=== PATIENT | male | born 1940 | race American Indian/Alaskan Native ===

== ENCOUNTER 2017-07-26 06:17 | Observation (INO) | payer MEDICARE, BC ==
[2017-07-21 13:02] VITALS: BMI 29.9
[2017-07-26] MEDS ORDERED: Lactated Ringer's 1,000 ML IV ONE ×4 (09:29→16:00)
[2017-07-26] MEDS ORDERED: Bupivacaine HCl 0.25% PF (10 ml) Inj ONE (09:56)
[2017-07-26] MEDS ORDERED: ceFAZolin IV 2 gm in Dextrose 2 GM/50 ML BAG IVPB ONE (09:56)
[2017-07-26] MEDS ORDERED: Lidocaine 1%/Epinephrine 1:100000 30 ml vial IJ ONE (10:00)
[2017-07-26] MEDS ORDERED: Propofol 10 mg/ml Inj (20 ML) ONE ×2 (10:49→12:49)
--- NOTE | 2017-07-26 11:28 | NM ---
HISTORY: [age] Year old male with right breast cancer. TECHNIQUE: For separate injections -totaling - 1.0 mCi of 99m Tc filtered sulfur colloid (total volume of 10 ml) were administered into the right periareolar subdermal locations 12, 3, 6 and 9 o'clock positions. Anterior/anterior-oblique and right lateral projection images of the chest/ axilla were subsequently obtained. FINDINGS: Confirmation of the 4 sites of injection. Right axillary lymph node identification. Multiple right axillary lymph nodes identified. Right supraclavicular lymph node also suggested IMPRESSION: Successful sentinel node procedure with confirmation of right axillary lymph nodes accumulating radionuclide Right supraclavicular lymph node also suggested
[2017-07-26] MEDS ORDERED: Bupivacaine HCl 0.5% PF (10 ml) Inj ONE ×2 (12:24→13:01)
[2017-07-26] MEDS ORDERED: Neostigmine Methylsulfate 3mg/3ml Syringe IV ONE (12:58)
--- NOTE | 2017-07-26 13:29 | PCM.SURG1 ---
Surgeon's Initial Post Op Note - Surgeon's Notes Surgeon: Shimon Card Folder: PGY4 Type of Anesthesia: General Endo, Local, Other (On Q) Pre-Operative Diagnosis: R breast cancer Operative Findings: see op note Post-Operative Diagnosis: R breast cancer Operation Performed: R breast mastectomy. Axillary node dissection. R breast sentinel lymph node biopsy Specimen/Specimens Removed: 1. R axillary lymph nodes for frozen section. 2. Redundant skin of R breast. 2. R breast Estimated Blood Loss: EBL {In ML}: 30 Blood Products Given: N/A Drains Used: Charlie Post-Op Condition: Good Date of Surgery/Procedure: 07/26/17 Time of Surgery/Procedure: 10:45
[2017-07-26] MEDS ORDERED: Oxycodone/Acetaminophen 5/325 mg Tab PO PRN (13:34)
[2017-07-26] MEDS ORDERED: BUPIVACAINE 0.125%/0.9% NACL 600 ML IJ ONE (14:00)
[2017-07-26] MEDS: Levothyroxine 100 MCG TAB PO SCH (18:00)
[2017-07-26] MEDS ORDERED: PrednisoLONE 1% Opht Susp(5 ml) OD SCH (18:00)
[2017-07-26] MEDS: ceFAZolin IV 1 gm in Dextrose 1 GM/50 ML BAG IVPB SCH (19:00)
[2017-07-26 20:18] VITALS: RESP 20
--- NOTE | 2017-07-27 01:29 | OP ---
PROCEDURE DATE: 07/26/2017 PREOPERATIVE DIAGNOSIS: Right breast cancer. POSTOPERATIVE DIAGNOSIS: Right breast cancer. PROCEDURES DONE: 1. Right mastectomy. 2. [place] lymph node dissection. 3. On-Q pain catheter pump placement. 4. Excision of the redundant skin flap. SURGEON: Ajay Robins MD PARTNERSHIP MARKETING MANAGER: Brandon Jin, PGY-2 resident. TYPE OF ANESTHESIA: General endotracheal tube anesthesia. ESTIMATED BLOOD LOSS: Around 30 mL. DRAINS: 15-Dutch Charlie drain was placed. COMPLICATIONS: None. INTRAOPERATIVE FINDINGS: Patient had five enlarged lymph nodes, and all the lymph nodes were negative for malignancy in frozen section, and patient had a right breast mass. DESCRIPTION OF PROCEDURE: On intraoperative steps, this is a 77-year-old male who was diagnosed with right breast cancer, and patient was consented for right mastectomy with sentinel lymph node dissection. The patient was brought to the OR, placed supine on the operating table. After induction of the anesthesia, both breasts and lower chest as well as the neck and axilla were prepped and draped in usual sterile fashion. After that, an axillary incision was made and incised the skin and subcutaneous tissue. The clavipectoral fascia was identified, and it was excised, and the five lymph nodes that were identified with gamma probe they were positive for signal, and all five lymph nodes were sent for intraoperative frozen section, and intraoperative frozen section was suggestive of negative for malignancy. Now an elliptical incision was made surrounding the right breast, and upper and lower flaps were created. The dissection was carried down superiorly up to the infraclavicular area, inferiorly up to the costal margin, medially up to the sternum, and laterally to the latissimus dorsi, and the right breast was completely excised from underlying pectoral muscle, and it was sent off the table for pathology. There was proper hemostasis in each and every part of the procedure. The wound was irrigated, and hemostasis was achieved. The 15-Dutch Charlie drain was placed and also the On-Q pain catheter pump was placed for postoperative analgesia. The third part of the procedure is On-Q pain catheter pump placement. After that the axillary wound was closed in multiple layers, the subcutaneous with a 2-0 Vicryl, skin with 4-0 Monocryl, and the extra redundant skin of the skin flap on the right side was also excised. Excision of the redundant skin flap was done approx 10x4 cm. After proper hemostasis, the wound was closed in two layers. The subcutaneous with multiple 2-0 Vicryl, skin with 4-0 Monocryl and dry sterile dressing was applied. Patient tolerated the procedure well. Count of instrument and gauze was correct. There was no apparent complication. Patient was extubated in OR, sent to the Postanesthesia Care Unit in stable condition. Ajay Robins MD [facility]ARA
[2017-07-27] MEDS: ceFAZolin IV 1 gm in Dextrose 1 GM/50 ML BAG IVPB SCH (03:13)
[2017-07-27] MEDS: Levothyroxine 100 MCG TAB PO SCH (05:54)
[2017-07-27 06:29] LABS: BASO # 0.1 K/uL (0.0-0.2); BASO % 0.5 % (0.0-2.0); EOS # 0.1 K/uL (0.0-0.7); EOS % 0.6 % (0.0-4.0); HEMOGLOBIN 10.7 g/dL (12.0-18.0); LYMPH % 8.6 % (20.0-40.0); MEAN CELL VOLUME 102.3 fL (80.0-94.0); MEAN CORPUSCULAR HEMOGLOBIN 34.6 pg (27.0-31.0); MEAN CORPUSCULAR HGB CONC 33.8 g/dL (33.0-37.0); MEAN PLATELET VOLUME 8.9 fL (7.2-11.7); MONO # 0.8 K/uL (0.0-0.8); MONO % 7.1 % (0.0-10.0); NEUT # 9.3 K/uL (1.8-7.0); NEUT % 83.2 % (50.0-75.0); PLATELET COUNT 208 K/uL (130-400); RBC 3.11 Mil/uL (4.40-5.90); RED CELL DISTRIBUTION WIDTH 12.9 % (11.5-14.5); WHITE BLOOD COUNT 11.2 K/uL (4.8-10.8)
[2017-07-27 06:45] LABS: BLOOD UREA NITROGEN 12 mg/dL (9-20); CALCIUM 8.7 mg/dl (8.6-10.4); GFR AFRICAN-AMERICAN > 60; GFR NON-AFRICAN AMERICAN > 60
[2017-07-27] MEDS ORDERED: ARMODAFINIL 250 MG PO SCH (10:00)
[2017-07-27] MEDS ORDERED: Home Med 1 UNIT (Mirabegron [Myrbetriq] 50 MG) PO SCH (10:00)
[2017-07-27 10:10] LABS: BANDS 1 % (0-2); LYMPHOCYTE 8 % (20-40); MONOCYTE 8 % (0-10); NEUTROPHIL 83 % (50-75); TOTAL CELLS COUNTED 100
[2017-07-27 10:11] LABS: ANISOCYTOSIS SLIGHT; HYPOCHROMIC SLIGHT; LARGE PLATELETS PRESENT; PLATELET CLUMPS PRESENT; PLATELET ESTIMATE NORMAL (NORMAL); POLYCHROMIC SLIGHT
[2017-07-27 10:12] LABS: TOXIC GRANULATION PRESENT
[2017-07-27] MEDS: Metoprolol Succinate 100 mg XL Tab PO SCH (11:12)
--- NOTE | 2017-07-27 17:50 | CP.PCM.PN ---
<Brandon Jin - Last Filed: 07/27/17 17:44> Subjective - Date & Time of Evaluation Date of Evaluation: 07/27/17 Time of Evaluation: 07:50 - Subjective Subjective: General Surgery Pt S&E, NAEO. Pain controlled with On-Q. No complaints. Objective - Vital Signs/Intake and Output Vital Signs (last 24 hours): Temp Pulse Resp BP Pulse Ox 98 F 70 20 149/73 97 07/27/17 16:00 07/27/17 16:00 07/27/17 16:00 07/27/17 16:00 07/27/17 16:00 Intake and Output: 07/27/17 07/27/17 06:59 18:59 Intake Total 590 Output Total 775 175 Balance -775 415 - Medications Medications: Current Medications Amlodipine Besylate (Norvasc) 5 mg PO DAILY [facility] Last Admin: 07/27/17 11:14 Dose: 5 mg Aspirin (Ecotrin) 81 mg PO DAILY [facility] Last Admin: 07/27/17 11:12 Dose: 81 mg Benzonatate (Tessalon Perles) 200 mg PO TID [facility] Last Admin: 07/27/17 17:30 Dose: 200 mg Glimepiride (Amaryl) 2 mg PO BID [facility] Last Admin: 07/27/17 17:30 Dose: 2 mg Home Med (Armodafinil [Nuvigil 250 Mg Tab]) 250 mg PO DAILY [facility] Home Med (Mirabegron [Myrbetriq]) 50 mg PO DAILY [facility] BUPIVACAINE 0.125%/0.9% NACL (Bupivacaine-Ns 0.125% On-Q Sales Correspondence Clerk) 600 mls @ 4 mls/ hr IJ ONCE ONE Stop: 08/01/17 19:59 Levothyroxine Sodium (Synthroid) 100 mcg PO DAILY@0630 [facility] Last Admin: 07/27/17 05:54 Dose: 100 mcg Losartan Potassium (Cozaar) 50 mg PO DAILY [facility] Last Admin: 07/27/17 11:12 Dose: 50 mg Metoprolol Succinate (Toprol Xl) 100 mg PO DAILY [facility] Last Admin: 07/27/17 11:12 Dose: 100 mg Montelukast Sodium (Singulair) 10 mg PO HS [facility] Last Admin: 07/26/17 21:25 Dose: 10 mg Ondansetron HCl (Zofran Inj) 4 mg IVP Q4H PRN PRN Reason: Nausea/Vomiting Oxycodone/Acetaminophen (Percocet 5/325 Mg Tab) 1 tab PO Q4 PRN PRN Reason: Pain, moderate (4-7) Stop: 07/29/17 13:35 Prednisolone Acetate (Pred Forte 1% Opht Susp) 0 ml OD QOD6 [facility] Last Admin: 07/26/17 21:26 Dose: Not Given Roflumilast (Daliresp) 500 mcg PO DAILY [facility] Last Admin: 07/27/17 12:21 Dose: 500 mcg Rosuvastatin Calcium (Crestor) 5 mg PO HS [facility] Last Admin: 07/26/17 21:25 Dose: 5 mg - Labs Labs: 07/27/17 06:20 07/27/17 06:20 - Constitutional Appears: Non-toxic, No Acute Distress - Head Exam Head Exam: ATRAUMATIC, NORMOCEPHALIC - Eye Exam Eye Exam: EOMI. absent: Scleral icterus - Respiratory Exam Respiratory Exam: NORMAL BREATHING PATTERN. absent: Accessory Muscle Use, Chest Wall Tenderness, Respiratory Distress Additional comments: Dressing C/D/I Drain with serosanguinous drainage. On Q in place No swelling or hematoma - Neurological Exam Neurological Exam: Alert, Awake, Oriented x3 - Skin Skin Exam: Dry, Warm Assessment and Plan - Assessment and Plan (Free Text) Assessment: 77M s/p R mastectomy with axillary node dissection and SLNBx POD#1 Plan: Doing well. monitor drainage. DC tomorrow. D/W Dr. Shimon Jin PGY4 <Ajay Robins B - Last Filed: 07/29/17 15:33> Objective - Vital Signs/Intake and Output Vital Signs (last 24 hours): Temp Pulse Resp BP Pulse Ox 98.9 F 62 20 153/65 H 95 07/28/17 08:22 07/28/17 08:22 07/28/17 08:22 07/28/17 08:22 07/28/17 08:22 - Labs Labs: 07/27/17 06:20 07/27/17 06:20 Attending/Attestation - Attestation I have personally seen and examined this patient.: Yes I have fully participated in the care of the patient.: Yes I have reviewed all pertinent clinical information, including history, physical exam and plan: Yes Notes (Text): Pt was seen and examined at bedside Agree with above note and assessment Pt is improving clincally DC plan Reg diet Plan d.w pt in detail
[2017-07-28 04:01] VITALS: O2SAT 95
[2017-07-28] MEDS: Levothyroxine 100 MCG TAB PO SCH (05:48)
[2017-07-28 08:23] VITALS: BP 153/65; PULSE 62; TEMP 98.9
--- NOTE | 2017-07-28 09:10 | CP.PCM.PN ---
<Malcolm Bustos - Last Filed: 07/28/17 09:18> Subjective - Date & Time of Evaluation Date of Evaluation: 07/28/17 Time of Evaluation: 09:05 - Subjective Subjective: General Surgery Progress Note For Dr. Robins This pt was seen and examined this AM no acute events to report over night. Denies fevers, chills, nausea, vomiting chest pain. 450 cc serosang from drain likely also partially due to ON Q. Objective - Vital Signs/Intake and Output Vital Signs (last 24 hours): Temp Pulse Resp BP Pulse Ox 98.9 F 62 20 153/65 H 95 07/28/17 08:22 07/28/17 08:22 07/28/17 08:22 07/28/17 08:22 07/28/17 08:22 Intake and Output: 07/28/17 07/28/17 06:59 18:59 Intake Total 240 Output Total 240 Balance 0 - Medications Medications: Current Medications Amlodipine Besylate (Norvasc) 5 mg PO DAILY [facility] Last Admin: 07/27/17 11:14 Dose: 5 mg Aspirin (Ecotrin) 81 mg PO DAILY [facility] Last Admin: 07/27/17 11:12 Dose: 81 mg Benzonatate (Tessalon Perles) 200 mg PO TID [facility] Last Admin: 07/27/17 17:30 Dose: 200 mg Glimepiride (Amaryl) 2 mg PO BID [facility] Last Admin: 07/27/17 17:30 Dose: 2 mg Home Med (Armodafinil [Nuvigil 250 Mg Tab]) 250 mg PO DAILY [facility] Home Med (Mirabegron [Myrbetriq]) 50 mg PO DAILY [facility] BUPIVACAINE 0.125%/0.9% NACL (Bupivacaine-Ns 0.125% On-Q Shipping Clerk/Admin) 600 mls @ 4 mls/ hr IJ ONCE ONE Stop: 08/01/17 19:59 Levothyroxine Sodium (Synthroid) 100 mcg PO DAILY@0630 [facility] Last Admin: 07/28/17 05:48 Dose: 100 mcg Losartan Potassium (Cozaar) 50 mg PO DAILY [facility] Last Admin: 07/27/17 11:12 Dose: 50 mg Metoprolol Succinate (Toprol Xl) 100 mg PO DAILY [facility] Last Admin: 07/27/17 11:12 Dose: 100 mg Montelukast Sodium (Singulair) 10 mg PO HS [facility] Last Admin: 07/27/17 21:55 Dose: 10 mg Ondansetron HCl (Zofran Inj) 4 mg IVP Q4H PRN PRN Reason: Nausea/Vomiting Oxycodone/Acetaminophen (Percocet 5/325 Mg Tab) 1 tab PO Q4 PRN PRN Reason: Pain, moderate (4-7) Stop: 07/29/17 13:35 Prednisolone Acetate (Pred Forte 1% Opht Susp) 0 ml OD QOD6 [facility] Last Admin: 07/26/17 21:26 Dose: Not Given Roflumilast (Daliresp) 500 mcg PO DAILY [facility] Last Admin: 07/27/17 12:21 Dose: 500 mcg Rosuvastatin Calcium (Crestor) 5 mg PO [facility] Last Admin: 07/27/17 21:55 Dose: 5 mg - Labs Labs: 07/27/17 06:20 07/27/17 06:20 - Constitutional Appears: Non-toxic, No Acute Distress - Head Exam Head Exam: ATRAUMATIC, NORMOCEPHALIC - Eye Exam Eye Exam: EOMI, Normal appearance - ENT Exam ENT Exam: Mucous Membranes Moist - Respiratory Exam Respiratory Exam: NORMAL BREATHING PATTERN - Cardiovascular Exam Cardiovascular Exam: +S1, +S2 - GI/Abdominal Exam GI & Abdominal Exam: Soft. absent: Guarding, Rigid, Tenderness - Neurological Exam Neurological Exam: Alert, Awake - Psychiatric Exam Psychiatric exam: Normal Affect, Normal Mood - Skin Skin Exam: Dry, Intact - Additional Findings Additional findings: Dressing CDI, no hematoma Assessment and Plan - Assessment and Plan (Free Text) Assessment: 77M s/p R mastectomy with axillary node dissection and SLNBx POD#2 Plan: Doing well. monitor drainage. Clear for D/C will discuss with Dr. Shimon Bustos PGY2 <Ajay Robins - Last Filed: 07/29/17 15:34> Objective - Vital Signs/Intake and Output Vital Signs (last 24 hours): Temp Pulse Resp BP Pulse Ox 98.9 F 62 20 153/65 H 95 07/28/17 08:22 07/28/17 08:22 07/28/17 08:22 07/28/17 08:22 07/28/17 08:22 - Labs Labs: 07/27/17 06:20 07/27/17 06:20 Attending/Attestation - Attestation I have personally seen and examined this patient.: Yes I have fully participated in the care of the patient.: Yes I have reviewed all pertinent clinical information, including history, physical exam and plan: Yes Notes (Text): Pt was seen and examined at bedside Agree with above note and assessment DC Plan Drain removal as out pt Po analgesics F/u as out pt Plan d.w pt in detail
[2017-07-28] MEDS: Metoprolol Succinate 100 mg XL Tab PO SCH (11:09)
--- NOTE | 2017-07-28 20:21 | CP.PCM.DIS ---
Provider - Provider Date of Admission: 07/26/17 13:34 Attending physician: Ajay Robins MD Hospital Course - Lab Results Lab Results: Most Recent Lab Values WBC 11.2 K/uL (4.8-10.8) H 07/27/17 06:20 RBC 3.11 Mil/uL (4.40-5.90) L 07/27/17 06:20 Hgb 10.7 g/dL (12.0-18.0) L 07/27/17 06:20 Hct 31.8 % (35.0-51.0) L 07/27/17 06:20 MCV 102.3 fL (80.0-94.0) H 07/27/17 06:20 MCH 34.6 pg (27.0-31.0) H 07/27/17 06:20 MCHC 33.8 g/dL (33.0-37.0) 07/27/17 06:20 RDW 12.9 % (11.5-14.5) 07/27/17 06:20 Plt Count 208 K/uL (130-400) 07/27/17 06:20 MPV 8.9 fL (7.2-11.7) 07/27/17 06:20 Neut % (Auto) 83.2 % (50.0-75.0) H 07/27/17 06:20 Lymph % (Auto) 8.6 % (20.0-40.0) L 07/27/17 06:20 [place] % (Auto) 7.1 % (0.0-10.0) 07/27/17 06:20 Eos % (Auto) 0.6 % (0.0-4.0) 07/27/17 06:20 Baso % (Auto) 0.5 % (0.0-2.0) 07/27/17 06:20 Neut # 9.3 K/uL (1.8-7.0) H 07/27/17 06:20 Lymph # 1.0 K/uL (1.0-4.3) 07/27/17 06:20 [place] # 0.8 K/uL (0.0-0.8) 07/27/17 06:20 Eos # 0.1 K/uL (0.0-0.7) 07/27/17 06:20 Baso # 0.1 K/uL (0.0-0.2) 07/27/17 06:20 Neutrophils % (Manual) 83 % (50-75) H 07/27/17 06:20 Band Neutrophils % 1 % (0-2) 07/27/17 06:20 Lymphocytes % (Manual) 8 % (20-40) L 07/27/17 06:20 Monocytes % (Manual) 8 % (0-10) 07/27/17 06:20 Toxic Granulation Present 07/27/17 06:20 Platelet Estimate Normal (NORMAL) 07/27/17 06:20 Plt Clumps, EDTA Present 07/27/17 06:20 Large Platelets Present 07/27/17 06:20 Polychromasia Slight 07/27/17 06:20 Hypochromasia (manual) Slight 07/27/17 06:20 Anisocytosis (manual) Slight 07/27/17 06:20 Macrocytosis (manual) Slight 07/27/17 06:20 Sodium 135 mmol/L (132-148) 07/27/17 06:20 Potassium 3.7 mmol/L (3.6-5.2) 07/27/17 06:20 Chloride 99 mmol/L (98-107) 07/27/17 06:20 Carbon Dioxide 28 mmol/L (22-30) 07/27/17 06:20 Anion Gap 12 (10-20) 07/27/17 06:20 BUN 12 mg/dL (9-20) 07/27/17 06:20 Creatinine 1.0 mg/dL (0.8-1.5) 07/27/17 06:20 Est GFR ( Amer) > 60 07/27/17 06:20 Est GFR (Non-Af Amer) > 60 07/27/17 06:20 POC Glucose (mg/dL) 115 mg/dL (65-110) H 07/28/17 11:42 Random Glucose 148 mg/dL (75-110) H 07/27/17 06:20 Calcium 8.7 mg/dl (8.6-10.4) 07/27/17 06:20 Discharge Exam - Head Exam Head Exam: ATRAUMATIC, NORMOCEPHALIC Discharge Plan - Follow Up Plan Condition: GOOD Disposition: HOME/ ROUTINE Instructions: Pain Management After Surgery (DC), Mastectomy (DC) Additional Instructions: Take percocet and colace as prescribed Keep area clean and dry Refrain from heavy lifting for 2 weeks Follow up with Dr. Robins in 1 week Referrals: Ajay Robins MD [Staff Provider] -
== END 2017-07-28 16:42 | disposition home or self-care (01) ==
LOC: C.SDS 06:17 → C.9E 13:34 → C.9S 14:15 → C.6T 20:07
PROVIDERS: ADMIT Surgery Surgical Critical Care; ATTEND Surgery Surgical Critical Care
DX: C50.929 Malignant neoplasm of unspecified site of unspecified male breast (principal); R11.2 Nausea with vomiting, unspecified; C50.921 Malignant neoplasm of unspecified site of right male breast
CPT/HCPCS: 19307; 36415; 78195; 80048; 82948; 85025; 88305; 88307; 88331; 88342; A9541; G0378; J0131; J0690; J2405; J2704; J2710; J3010; J7120